=== PATIENT | male | born 1950 | race Caucasian/White ===

== ENCOUNTER 2019-12-17 17:00 | Emergency (ER) | payer MEDICARE, SELFPAY ==
--- NOTE | ~2019-12-17 | CT_ITS ---
EXAMINATION: CT soft tissue neck chest wo EXAM DATE: 12/17/2019 17:42 INDICATION: Foreign body sensation in throat. Symptoms since last night. Difficulty swallowing. TECHNIQUE: Spiral CT of the neck was performed without contrast. Axial, coronal and sagittal images were reviewed. The dose-length product (DLP) for this examination was 619.19 mGy-cm. The exposure was tailored according to patient size (auto mA exposure control), and iterative reconstruction (ASIR ) was used as additional dose reduction technique. Comparison is made to prior examination from 2018. FINDINGS: No radiopaque foreign bodies identified. Imaged portion of esophagus to the mid esophageal level is unremarkable. The thyroid gland is unremarkable. The submandibular and parotid glands are symmetric. There is no cervical lymphadenopathy. There are no masses identified. The superior mediastinum is unremarkable. The airway is unremarkable. Parapharyngeal and pre-glottic fat plane s are preserved. Limited evaluation of cervical vessels on this noncontrast study. The orbits are unremarkable. Visualized sinuses and mastoid air cells are well aerated. Unremarkable lung apice s. Osseous fusion of the C4-7 vertebral bodies. There is 2 mm anterolisthesis C7 on T1 and moderate disc disease at C3-4. IMPRESSION: Unremarkable CT neck examination. Reviewed, dictated and finalized at location A.
[2019-12-17 17:08] VITALS: BP 162/95; PULSE 81; RESP 20; TEMP 36.7; O2SAT 98
--- NOTE | 2019-12-17 18:06 | ED.GENADULT ---
HPI - General Adult General Chief complaint: Skin/Abscess/Foreign Body Stated complaint: trouble breathing History of Present Illness HPI narrative: Yovanny is a 69-year-old man with a past medical history depression, diet-controlled type 2 diabetes, hypertension and hyperlipidemia as well as anxiety that presented to the emergency department with a feeling that something is stuck in his throat. it has been present for 3 days but became much worse yesterday after eating tacos. since that time he has been gagging, coughing and feels like he cannot breathe. He denies any fevers, chills, nausea, vomiting, hematemesis and trauma. he has never had this before. no recent weight changes. Related Data Allergies Allergy/AdvReac Type Severity Reaction Status Date / Time cat dander AdvReac Unknown Itching Verified 07/29/19 08:38 Review of Systems Constitutional: Constitutional: Denies chills and Denies fever(s) Eyes: Eyes: Denies change in vision ENT: Reports system reviewed and no additional complaints, except as documented Cardiovascular: Cardiovascular: Reports no additional cardiovascular complaints Respiratory: Respiratory: Reports as per HPI Gastrointestinal: Gastrointestinal: Reports as per HPI Genitourinary: Genitourinary: Reports no additional male genitourinary complaints Musculoskeletal: Musculoskeletal: Reports no additional musculoskeletal complaints Integumentary/Breasts: Skin/Breast: Reports system reviewed and no additional complaints, except as docu Neurologic: Reports system reviewed and no additional complaints, except as documented Psychiatric: Psychiatric: Reports no additional psychiatric complaints Endocrine: Endocrine: Reports no additional endocrine complaints Hematologic/Lymphatic: Hematologic/Lymphatic: Reports no additional hematologic/lymphatic complaints Allergic/Immunologic: Allergic/Immunologic: Reports no additional allergic/immunologic complaints FOR[facility]LY [facility] Past Medical History Medical History DM2 (diabetes mellitus, type 2) RAMA (generalized anxiety disorder) Generalized anxiety disorder Hyperlipidemia Hypertension Type 2 diabetes mellitus Surgical History Surgical History History of neck surgery 1984 & 1983 History of right knee surgery 1967 History of shoulder surgery Right Shoulder 1997 Family History Family History Father Cerebrovascular accident Mother Family history of kidney disease Family history of diabetes mellitus in first degree relative Social History Social History Smoking status: Never smoker Alcohol intake: never Additional living arrangements comments: . 5 grown children. Has custody of 1 granddaughter. 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 Exam Const: General: no acute distress; No alert Orientation/consciousness: patient oriented x3 HENMT: Head: normal to inspection Mouth: Yes Normal oral and palatal mucosa present, Yes lip normal and Yes moist mucous membranes Teeth and gingiva: dentition normal Throat: posterior oropharynx normal and uvula midline Eyes: Conjunctivae: conjunctivae normal Pupils: Equal, round and reactive pupils present Neck: Neck: normal visual inspection and no lymphadenopathy Chest: Chest palpation & inspection: normal inspection of the chest Resp: Effort & Inspection: normal respiratory effort Auscultation: clear to auscultation bilaterally Cardio: Rate: regular rate Rhythm: regular rhythm GI: GI Palp: Yes Soft to palpation and No Tenderness to palpation present (GI) Skin: General skin exam: normal color Neuro: General: patient oriented x3 and moves all extremities Extrem: General: normal t
[2019-12-17 18:08] VITALS: BP 140/86; PULSE 85; RESP 20; O2SAT 98
== END 2019-12-17 18:14 | disposition home or self-care (01) ==
PROVIDERS: Emergency Provider Family Medicine; PCP Family Medicine
DX: F45.8 Other somatoform disorders (principal); E11.9 Type 2 diabetes mellitus without complications; I10 Essential (primary) hypertension; E78.5 Hyperlipidemia, unspecified; F32.9 Major depressive disorder, single episode, unspecified
CPT/HCPCS: 70490; 71250; 99283; 99284

== ENCOUNTER 2021-11-22 08:42 | Outpatient (CLI) | payer MEDICARE, SELFPAY ==
[2021-11-22 08:57] LABS: Hemoglobin 11.9 g/dL (12.4-15.3); Mean Corpuscular HGB Conc 33.1 g/dL (32.0-36.0); Mean Corpuscular Hemoglobin 32.2 pg (27.0-31.0); Mean Corpuscular Volume 97.3 fL (78.0-102.0); Mean Platelet Volume 10.2 fl (8.7-11.0); Platelet Count Result 238 K/mm3 (150-420); Red Cell Distribution Width 13.2 % (11.6-14.4); White Blood Count 6.5 K/mm3 (4.8-10.8)
[2021-11-22 09:11] LABS: Hemoglobin A1C 5.9 % (<5.7)
[2021-11-22 09:14] LABS: Creatinine Urine 168.82 mg/dL (40-278)
[2021-11-22 09:16] LABS: MALB Creatinine Ratio 72.6 mg/g (0-30); Microalbumin Urine Random 122.7 mg/L
[2021-11-22 09:17] LABS: Alanine Aminotransferase 26 U/L (16-63); Albumin Level 4.1 g/dL (3.4-5.0); Alkaline Phosphatase 85 U/L (46-116); Anion Gap 10 mmol/L (8-16); Aspartate Amino Transferase 31 U/L (15-37); Bilirubin,Total 0.7 mg/dL (0.00-1.00); Blood Urea Nitrogen 18 mg/dL (7-18); Carbon Dioxide 27 mmol/L (21-32); Chloride 103 mmol/L (98-108); Cholesterol 129 mg/dL (0-200); Estimated Glomerular Filt Rate 57; Glucose 109 mg/dL (70-99); HDL Direct 38 mg/dL (40-60); LDL Cholesterol Calculated 40 mg/dL (<130); Osmolality Calculated 292 mOsm/kg (285-295); Potassium 4.1 mmol/L (3.5-5.1); Sodium 140 mmol/L (136-145); Total Protein 8.1 g/dL (6.4-8.2); Triglycerides 255 mg/dL (0-150)
== END 2021-11-22 08:43 | disposition home or self-care (01) ==
LOC: CHSLAB 08:44
PROVIDERS: PCP Family Medicine; Visit Provider Family Medicine
DX: E11.9 Type 2 diabetes mellitus without complications (principal); I10 Essential (primary) hypertension
CPT/HCPCS: 36415; 80053; 80061; 82043; 83036; 85027

== ENCOUNTER 2022-02-08 15:32 | Emergency (ER) | payer MEDICARE, SELFPAY ==
--- NOTE | ~2022-02-08 | XR_ITS ---
EXAM: XR shoulder LT min 2V DATE: 02/08/2022 16:25 HISTORY: s/p fall. shoulder pain with movement . COMPARISON: None available. FINDINGS: Decreased mineralization. No fracture or dislocation. No lytic or blastic lesion. Moderate AC joint hypertrophy. Mild glenohumeral osteoarthritic change. No erosion or periosteal change. Soft tissues within normal limits. IMPRESSION: No acute osseous finding the left shoulder. Reviewed, dictated and finalized at location K.
[2022-02-08 15:45] VITALS: BP 141/90; PULSE 91; RESP 20; TEMP 36.7; O2SAT 97
--- NOTE | 2022-02-08 15:59 | ED.FALL ---
HPI - Fall General Chief Complaint: Fall Stated Complaint: FALL L ARM LACERATION Time Seen by Provider: 02/08/22 16:07 Source: patient Mode of arrival: ambulatory Limitations: no limitations History of Present Illness HPI Narrative: 71-year-old male with a history of hypertension, dyslipidemia, diabetes mellitus,peripheral vascular disease status post right CEA tripped over a tree root half an hour ago and presents with -- left forearm skin tear -- left shoulder pain with decreased range of motion -- left thigh pain without any bruising had tetanus immunization 3 years ago. MD complaint: fall Onset (ago): minute(s) ( 30 minutes ago) Fall from: standing Place fall occurred: home Loss of consciousness: none Prolonged down time: no Symptoms prior to fall: none Context: tripped/slipped Location of injury - extremities: Left: shoulder and forearm Severity: moderate Severity scale (1-10): 2 Quality: aching Related Data Allergies Allergy/AdvReac Type Severity Reaction Status Date / Time cat dander AdvReac Unknown Itching Verified 11/22/21 07:29 Review of Systems Review of Systems: All systems reviewed & are unremarkable except as noted in HPI and below Constitutional: Constitutional: Reports as per HPI and Reports no additional constitutional complaints Eyes: Eyes: Reports as per HPI and Reports no additional eye complaints ENT: Reports system reviewed and no additional complaints, except as documented and Reports as per HPI Cardiovascular: Cardiovascular: Reports as per HPI and Reports no additional cardiovascular complaints Respiratory: Respiratory: Reports as per HPI and Reports no additional respiratory complaints Gastrointestinal: Gastrointestinal: Reports as per HPI and Reports no additional gastrointestinal complaints Genitourinary: Genitourinary: Reports no additional male genitourinary complaints and Reports as per HPI Musculoskeletal: Musculoskeletal: Reports no additional musculoskeletal complaints, Reports as per HPI and Reports arthralgias Comments: left shoulder pain with decreased range of motion left thigh pain left forearm skin tear Integumentary/Breasts: Comments: left forearm skin tear Neurologic: Reports system reviewed and no additional complaints, except as documented and Reports as per HPI Psychiatric: Psychiatric: Reports no additional psychiatric complaints and Reports as per HPI Endocrine: Endocrine: Reports no additional endocrine complaints and Reports as per HPI Hematologic/Lymphatic: Hematologic/Lymphatic: Reports no additional hematologic/lymphatic complaints and Reports as per HPI Allergic/Immunologic: Allergic/Immunologic: Reports no additional allergic/immunologic complaints and Reports as per HPI PMFSH Past Medical History Medical History Colon cancer screening DM2 (diabetes mellitus, type 2) RAMA (generalized anxiety disorder) Hearing loss Hyperlipidemia Hypertension Type 2 diabetes mellitus Surgical History Surgical History History of neck surgery 1984 & 1983 History of right knee surgery 1967 History of shoulder surgery Right Shoulder 1998 Family History Family History Father Cerebrovascular accident Mother Family history of kidney disease Family history of diabetes mellitus in first degree relative Social History Social History Smoking status: Never smoker Alcohol intake: never Additional living arrangements comments: . 5 grown children. Has custody of 1 granddaughter. 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
[2022-02-08 16:40] VITALS: BP 145/90; PULSE 74; RESP 20; TEMP 36.7; O2SAT 97
== END 2022-02-08 16:57 | disposition home or self-care (01) ==
PROVIDERS: Emergency Provider Internal Medicine Critical Care Medicine; PCP Family Medicine
DX: M25.512 Pain in left shoulder (principal); S51.812A Laceration without foreign body of left forearm, initial encounter; W01.0XXA Fall on same level from slipping, tripping and stumbling without subsequent striking against object, initial encounter; E11.9 Type 2 diabetes mellitus without complications; E78.5 Hyperlipidemia, unspecified; I10 Essential (primary) hypertension
CPT/HCPCS: 73030; 99283

== ENCOUNTER 2023-08-09 15:02 | Outpatient (CLI) | payer MEDICARE, SELFPAY ==
[2023-08-09 15:20] LABS: Basophils Absolute Auto 0.06 K/mm3 (0.00-0.10); Basophils Percent Auto 0.8 % (0.0-1.0); Eosinophils Absolute Auto 0.33 K/mm3 (0.02-0.50); Eosinophils Percent Auto 4.4 % (1.0-6.0); Hematocrit 37.2 % (37.0-46.0); Immature Granulocyte Absolute 0.03 K/mm3 (0.00-0.00); Immature Granulocyte Percent A 0.4 % (0.0-0.0); Lymphocytes Absolute Auto 2.45 K/mm3 (1.10-4.50); Lymphocytes Percent Auto 32.5 % (18.0-42.0); Mean Corpuscular HGB Conc 32.3 g/dL (32.0-36.0); Mean Corpuscular Hemoglobin 30.5 pg (27.0-31.0); Mean Corpuscular Volume 94.7 fL (78.0-102.0); Mean Platelet Volume 10.4 fl (8.7-11.0); Monocytes Absolute Auto 0.54 K/mm3 (0.10-0.90); Monocytes Percent Auto 7.2 % (2.0-11.0); Neutrophils Absolute Auto 4.1 K/mm3 (1.7-7.2); Neutrophils Percent Auto 54.7 % (50.0-70.0); Platelet Count Result 255 K/mm3 (150-420); Red Blood Count 3.93 M/mm3 (4.70-6.10); Red Cell Distribution Width 13.1 % (11.6-14.4); White Blood Count 7.6 K/mm3 (4.8-10.8)
[2023-08-09 15:37] LABS: Hemoglobin A1C 5.9 % (<5.7)
[2023-08-09 15:50] LABS: Alanine Aminotransferase 29 U/L (16-63); Albumin Level 4.2 g/dL (3.4-5.0); Alkaline Phosphatase 73 U/L (46-116); Anion Gap 10 mmol/L (8-16); Aspartate Amino Transferase 26 U/L (15-37); Bilirubin,Total 0.6 mg/dL (0.00-1.00); Blood Urea Nitrogen 11 mg/dL (7-18); Carbon Dioxide 29 mmol/L (21-32); Chloride 101 mmol/L (98-108); Cholesterol 192 mg/dL (0-200); Estimated Glomerular Filt Rate > 60; Glucose 95 mg/dL (70-99); HDL Direct 55 mg/dL (40-60); LDL Cholesterol Calculated 100 mg/dL (<130); Osmolality Calculated 289 mOsm/kg (285-295); Sodium 140 mmol/L (136-145); Total Protein 7.5 g/dL (6.4-8.2); Triglycerides 184 mg/dL (0-150)
== END 2023-08-09 15:03 | disposition home or self-care (01) ==
LOC: CHSLAB 15:04
PROVIDERS: PCP Family Medicine; Visit Provider Family Medicine
DX: E11.9 Type 2 diabetes mellitus without complications (principal); I10 Essential (primary) hypertension
CPT/HCPCS: 36415; 80053; 80061; 83036; 85025

== ENCOUNTER 2025-05-04 11:50 | Outpatient (CLI) | payer MEDICARE, SELFPAY ==
[2025-05-04 12:17] LABS: Hematocrit 35.9 % (37.0-46.0); Hemoglobin 11.8 g/dL (12.4-15.3); Immature Granulocyte Percent A 0.4 % (0.0-0.0); Lymphocytes Absolute Auto 2.09 K/mm3 (1.10-4.50); Mean Corpuscular HGB Conc 32.9 g/dL (32-36); Mean Corpuscular Hemoglobin 31.6 pg (27.0-31.0); Mean Corpuscular Volume 96.2 fL (78.0-102.0); Nucleated Red Blood Cells Absolute Auto 0.00 K/mm3 (0.00-0.00); Nucleated Red Blood Cells Perc 0.0 % (0-0.0); Platelet Count Result 311 K/mm3 (150-420); Red Blood Count 3.73 M/mm3 (4.70-6.10); White Blood Count 7.9 K/mm3 (4.8-10.8)
[2025-05-04 12:31] LABS: MALB Creatinine Ratio 80.4 mg/g (0-30)
[2025-05-04 12:53] LABS: Alanine Aminotransferase 29 U/L (6-50); Albumin Level 4.9 g/dL (3.5-5.1); Alkaline Phosphatase 67 U/L (38-126); Anion Gap 10 mmol/L (4-12); Aspartate Amino Transferase 47 U/L (17-59); Bilirubin,Total 1.2 mg/dL (0.2-1.3); Blood Urea Nitrogen 17 mg/dL (9-20); Calcium 9.9 mg/dL (8.4-10.2); Carbon Dioxide 27 mmol/L (22-30); Chloride 104 mmol/L (98-107); Cholesterol 133 mg/dL (0-200); Estimated Glomerular Filt Rate 60; Glucose 118 mg/dL (65-110); HDL Direct 51 mg/dL; Osmolality Calculated 294 mOsm/kg (285-295); Potassium 4.5 mmol/L (3.4-5.0); Sodium 141 mmol/L (137-145); Total Protein 8.6 g/dL (6.3-8.2); Triglycerides 151 mg/dL (<150)
== END 2025-05-04 11:51 | disposition home or self-care (01) ==
LOC: CHSLAB 11:51
PROVIDERS: PCP Family Medicine; Visit Provider Family Medicine
DX: I10 Essential (primary) hypertension (principal); E11.9 Type 2 diabetes mellitus without complications
CPT/HCPCS: 36415; 80053; 80061; 82043; 85025

== ENCOUNTER 2025-05-25 09:55 | Emergency (ER) | payer MEDICARE, SELFPAY ==
[2025-05-25] VITALS (20 sets, daily range): BP systolic 127–149; BP diastolic 70–89; PULSE 59–70; RESP 10–20; TEMP 36.3–36.6; O2SAT 97–100
--- NOTE | ~2025-05-25 | XR_ITS ---
EXAMINATION: XR chest 1V portable COMPARISON: No comparisons available. HISTORY: sob FINDINGS: The lungs are clear, no effusion. No pneumothorax. Heart is normal size. Mediastinal and hilar contours are within normal limits. Bony thorax no acute abnormality. Miscellaneous: None Impression: No acute cardiopulmonary abnormality. Reviewed, dictated and finalized at location P. AL MAINTAINER Impression: No acute cardiopulmonary abnormality.
--- NOTE | ~2025-05-25 | CT_ITS ---
EXAMINATION: CT cervical spine wo con DATE: 05/25/2025 10:28 INDICATION: Neck pain TECHNIQUE: Computed tomography (CT) of the cervical spine was performed without intravenous contrast. Automated exposure control and iterative reconstruction technique were employed. The dose-length product was 581.25 mGy-cm. 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 Slight reversal of the normal cervical lordosis. 3-4 mm anterolisthesis C7 on T1. C4-C7 anterior spinal fusion without instrumentation. There is likely secondary C4-C7 posterior spinal fusion with osseous bridging across portions of the bilateral facet joints, also without instrumentation. Unfused vertebral body heights are normal. No acute fracture. Severe disc height loss with degenerative endplate changes at C7-T1. Moderate disc height loss at C3-C4 and mild disc height loss at C2-C3. Bilateral uncovertebral osteoarthritis, mild on the left and moderate on the right at C2-C3 and moderate on the left and severe on the right at C3-C4. Posterior disc ossified complexes contribute to mild central canal stenosis at C2-C3 and C3-C4. Additional mild central canal stenosis at C7-T1 resulting from both the mild anterolisthesis, small posterior endplate osteophytes and small osteophytes and dystrophic calcium location related to the severe bilateral facet osteoarthritis. Mild hypertrophic change along the fused C4 C5-C6 7 disc spaces also contribute to minimal central canal stenosis. Multilevel facet osteoarthritis, mild on the left at C2-C3, moderate on the left at C3-C4, severe on the right at C2-C3, C3- C4, bilaterally at C7-T1 through T4-T5. This contributes to moderate neural foraminal stenosis on the right at C2-C3, bilaterally at C3-C4 and T4-T5 and on the left at C7-T1 and T2-T3. Mild neural foraminal stenosis at the remaining cervical and upper thoracic neural foramina. Atherosclerotic calcifications at the bilateral carotid bulbs, left greater than right. Cervical soft tissues are otherwise unremarkable. Mild biapical pleural-parenchymal scarring. IMPRESSION: 1. Severe cervical spondylosis including 304 mm anterolisthesis C7 on T1 and anterior and posterior spinal fusion without instrumentation at C4-C7. Reviewed, dictated and finalized at location A. IEVAL SPECIALIST IMPRESSION: 1. Severe cervical spondylosis including 304 mm anterolisthesis C7 on T1 and an terior and posterior spinal fusion without instrumentation at C4-C7.
--- NOTE | 2025-05-25 10:00 | ED_ITS ---
HPI - General Adult General Chief complaint: Extremity Injury, Upper Stated complaint: L. Arm Pain Time Seen by Provider: 05/25/25 09:59 Source: patient Mode of arrival: ambulatory History of Present Illness HPI narrative: 75 years old white male came to the ED by private car from home complaining of left shoulder pain going down to his left hand and pain at the back of the neck the started yesterday morning after lifting a wooden door. Patient report pain gets better with Tylenol, get worse if he does not take Tylenol. He denies any fever, chills, nausea, vomiting, chest pain, shortness of breath. History of 2 neck surgery 20 years ago. Patient denies any tingling or numbness or weakness of the left upper extremity. Related Data Allergies Allergy/AdvReac Type Severity Reaction Status Date / Time cat dander AdvReac Unknown Itching Verified 05/25/25 10:02 Review of Systems 2 Review of Systems: All systems reviewed & are unremarkable except as noted in HPI and below PMFSH Past Medical History Medical History Colon cancer screening Hearing loss DM2 (diabetes mellitus, type 2) Type 2 diabetes mellitus Hypertension Hyperlipidemia RAMA (generalized anxiety disorder) Surgical History Surgical History History of shoulder surgery Right Shoulder 1997 History of neck surgery 1984 & 1983 History of right knee surgery 1966 Family History Family History Father Cerebrovascular accident Mother Family history of kidney disease Family history of diabetes mellitus in first degree relative Social History Social History Alcohol intake: never Living arrangements: with family Additional living arrangements comments: . 5 grown children. Has custody of 1 granddaughter. 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 Musculoskeletal: Moderate limited range of motion of left shoulder because of pain, no deformity, no swelling, no rash. Neurologic: Alert and oriented ?3, [place]ANG[place] is normal as tested, no gross motor deficit Course Vital Signs Vital signs: Vital Signs Pulse Oximetry 99 05/25/25 09:55 Oxygen Delivery Room Air 05/25/25 09:55 Temperature 36.6 C 05/25/25 09:56 Pulse Rate 63 05/25/25 11:31 Respiratory Rate 14 05/25/25 11:31 Blood Pressure 127/73 05/25/25 11:30 Pulse Oximetry 100 05/25/25 10:46 Oxygen Delivery Room Air 05/25/25 09:56 Medical Decision Making [facility] Narrative Medical decision making narrative: Patient came with left shoulder and neck pain started yesterday after lifting a wooden door. Patient denies any chest pain or shortness of breath or back pain, Vital signs stable Physical examination showing [id number] tenderness left shoulder and neck posteriorly Differential diagnosis include sprain/strain, less likely coronary artery disease Blood workup today includes CBC, CMP, troponin, coags and D-dimer showed no significant abnormalities. EKG showed normal sinus rhythm otherwise within normal limit Chest x-ray showed no acute abnormality CT cervical spine without contrast showed no significant abnormalities DIAGNOSIS LEFT SHOULDER SPRAIN/STRAIN, CERVICALGIA DISCHARGED HOME MELOXICAM AND CYCLOBENZAPRINE THE PT WAS DISCHARGED TO HOME.THE PT,S CONDITION UPON DISCHARGE WAS FAIR,EDUCATION WAS PROVIDED TO THE PT IN REFERENCE TO THE FINAL IMPRESSION,DISCHARGE STUDY RESULTS,TREATMENT,PROGNOSIS AND NEED FOR FOLLOW UP . Differential Diagnosis Differential Diagnosis: As above Vital Signs Vital Signs: Vital Signs Pulse Oximetry 99 05/25/25 09:55 Oxygen Delivery Room Air 05/25/25 09:55 Temperature 36.6 C 05/25/25 09:56 Pulse Rate 63 05/25/25 11:31 Respiratory Rate 14 05/25/25 11:31 Blood Pressure 127/73 05/25/25 11:30 Pulse Oximetry 100 05/25/25 10:46 Oxygen Delivery Room Air 05/25/25 09:56 Lab Data 05/25/25 10:10 05/25/25 10:10 Labs: Lab Results 05/25/25 05/25/25 Range/Units 10:10 10:10 WBC 7.8 (4.8-10.8) K/mm3 RBC 3.60 L (4.70-6.10) M/mm3 Hgb 11.6 L (12.4-15.3) g/dL Hct 34.8 L (37.0-46.0) % MCV 96.7 (78.0-102.0) fL MCH 32.2 H (27.0-31.0) pg MCHC 33.3 (32-36) g/dL RDW 13.2 (11.6-14.4) % Plt Count 305 (150-420) K/mm3 MPV 9.9 (8.7-11.0) fl Immature Gran % (Auto) 0.4 H (0.0-0.0) % Neut % (Auto) 59.1 (50.0-70.0) % Lymph % (Auto) 28.1 (18.0-42.0) % [place] % (Auto) 6.8 (2.0-11.0) % Eos % (Auto) 4.6 (1.0-6.0) % Baso % (Auto) 1.0 (0.0-1.0) % Lymph # (Auto) 2.20 (1.10-4.50) K/mm3 [place] # (Auto) 0.53 (0.10-0.90) K/mm3 Eos # (Auto) 0.36 (0.02-0.50) K/mm3 Baso # (Auto) 0.08 (0.00-0.10) K/mm3 Abs Immat Gran (auto) 0.03 H (0.00-0.00) K/mm3 Absolute Neuts (auto) 4.64 (1.70-7.20) K/mm3 Absolute Nucleated RBC 0.00 (0.00-0.00) K/mm3 Nucleated RBC % 0.0 (0-0.0) % PT 10.4 (9.50-12.1) Seconds INR 0.9 APTT 26.0 (23.9-30.70) Sec D-Dimer 0.26 Cancelled (0.19-0.50) mg/L Sodium 142 (137-145) mmol/L Potassium 4.2 (3.4-5.0) mmol/L Chloride 107 (98-107) mmol/L Carbon Dioxide 24 (22-30) mmol/L Anion Gap 11 (4-12) mmol/L BUN 18 (9-20) mg/dL Creatinine 1.15 (0.7-1.3) mg/dL Estim Creat Clear Calc 50 ml/min Estimated GFR > 60 (59 - ) Glucose 118 H (65-110) mg/dL Calculated Osmolality 296 H (285-295) mOsm/kg Calcium 9.6 (8.4-10.2) mg/dL Total Bilirubin 1.8 H (0.2-1.3) mg/dL AST 43 (17-59) U/L ALT 29 (6-50) U/L Alkaline Phosphatase 83 (38-126) U/L Troponin I < 0.012 (0.000-0.034) ng/mL NT-Pro-B Natriuret Pep < 20 (19.9-100) pg/mL Total Protein 7.7 (6.3-8.2) g/dL Albumin 4.9 (3.5-5.1) g/dL Imaging Data Radiologist's impression: Impressions Chest X-Ray 05/25/25 10:15 Impression: No acute cardiopulmonary abnormality. Cervical Spine CT 05/25/25 11:22 IMPRESSION: 1. Severe cervical spondylosis including 304 mm anterolisthesis C7 on T1 and anterior and posterior spinal fusion without instrumentation at C4-C7. ECG Data EKG #1: Attestation: I personally reviewed and interpreted this ECG as follows: ECG completion date: 05/25/25 Interpretation: Normal sinus rhythm at 64 beats per minute, normal EKG Critical Care Time Critical Care Time Critical Care Time: No Discharge Plan Discharge Clinical Impression: Left shoulder pain, Cervicalgia Patient Disposition: Home Condition: Stable Instructions: Shoulder Sprain (ED), Acute Neck Pain (ED) Additional Instructions: Return if symptoms are worsening , call your family physician for appointment, take Tylenol as as needed for aches and pain, continue home medications. Patient Language: Cymraes Prescriptions: New cyclobenzaprine 7.5 mg tablet 7.5 mg PO TID Qty: 20 0RF meloxicam 7.5 mg tablet 7.5 mg PO DAILY Qty: 10 0RF No Action sildenafil 25 mg tablet 25 mg PO DAILY PRN (Reason: sexual activity) Qty: 30 0RF Rx Instructions: administer 30 minutes to 4 hours before activity triamcinolone acetonide [Nasacort] 55 mcg aerosol,spray 2 spray intranasal DAILY PRN (Reason: allergy symptoms) Qty: 16.9 0RF Rx Instructions: administer into each nostril, use only as needed atorvastatin 40 mg tablet See Rx Instructions .ROUTE .COMPLEX Qty: 90 1RF Dose Instruction: Take 1 tablet by mouth once daily Rx Instructions: Take 1 tablet by mouth once daily lisinopril 20 mg tablet See Rx Instructions .ROUTE .COMPLEX Qty: 10 0RF Dose Instruction: Take 1 tablet by mouth once daily Rx Instructions: Take 1 tablet by mouth once daily Follow-up/Referrals: Luis M Fernandez DO [Primary Care Provider, Family Practice] Quality HEART score for chest pain patients History: slightly suspicious ECG: normal Age: > or = to 65 years Risk factors: 1 or 2 risk factors Troponin: < or = to 1x normal limit Heart score: 3
--- NOTE | 2025-05-25 10:01 | ECG_ITS ---
Test Date: 2025-05-25 10:01:20 Measurements Intervals [place] Rate: 64 P: 70 [place]: 163 QRS: 57 QRSD: 97 T: 65 QT: 401 QTc: 415 Interpretive Statements SINUS RHYTHM No previous ECG available for comparison Electronically Signed On 05-26-2025 10:50:02 LUMP MAKER by Garland Harden M.D.
[2025-05-25 10:14] LABS: Hematocrit 34.8 % (37.0-46.0); Hemoglobin 11.6 g/dL (12.4-15.3); Immature Granulocyte Percent A 0.4 % (0.0-0.0); Lymphocytes Absolute Auto 2.20 K/mm3 (1.10-4.50); Mean Corpuscular HGB Conc 33.3 g/dL (32-36); Mean Corpuscular Hemoglobin 32.2 pg (27.0-31.0); Mean Corpuscular Volume 96.7 fL (78.0-102.0); Nucleated Red Blood Cells Absolute Auto 0.00 K/mm3 (0.00-0.00); Nucleated Red Blood Cells Perc 0.0 % (0-0.0); Platelet Count Result 305 K/mm3 (150-420); Red Blood Count 3.60 M/mm3 (4.70-6.10); White Blood Count 7.8 K/mm3 (4.8-10.8)
[2025-05-25 10:29] LABS: Alanine Aminotransferase 29 U/L (6-50); Albumin Level 4.9 g/dL (3.5-5.1); Alkaline Phosphatase 83 U/L (38-126); Anion Gap 11 mmol/L (4-12); Aspartate Amino Transferase 43 U/L (17-59); Bilirubin,Total 1.8 mg/dL (0.2-1.3); Blood Urea Nitrogen 18 mg/dL (9-20); Calcium 9.6 mg/dL (8.4-10.2); Carbon Dioxide 24 mmol/L (22-30); Chloride 107 mmol/L (98-107); Estimated CRCL calculation 50 ml/min; Estimated Glomerular Filt Rate > 60; Glucose 118 mg/dL (65-110); INR 0.9; Osmolality Calculated 296 mOsm/kg (285-295); Partial Thromboplastin Time 26.0 Sec (23.9-30.70); Potassium 4.2 mmol/L (3.4-5.0); Prothrombin Time 10.4 Seconds (9.50-12.1); Sodium 142 mmol/L (137-145); Total Protein 7.7 g/dL (6.3-8.2)
[2025-05-25 10:38] LABS: NT Pro B Type Natriuretic Pept < 20 pg/mL (19.9-100)
[2025-05-25 10:41] LABS: Troponin I < 0.012 ng/mL (0.000-0.034)
== END 2025-05-25 12:15 | disposition home or self-care (01) ==
PROVIDERS: Emergency Provider Emergency Medicine; PCP Family Medicine
DX: M25.512 Pain in left shoulder (principal); M54.2 Cervicalgia; I10 Essential (primary) hypertension; E78.5 Hyperlipidemia, unspecified; E11.9 Type 2 diabetes mellitus without complications
CPT/HCPCS: 36415; 71045; 72125; 80053; 83880; 84484; 85025; 85380; 85610; 85730; 93005; 99284